=== PATIENT | male | born 1960 ===

== ENCOUNTER 2023-06-26 09:23 | Outpatient (CLI) | payer OTHER ==
[2023-06-26 10:24] LABS: HEMATOCRIT 42.2 % (39.0-48.0); HEMOGLOBIN 14.4 g/dL (13-16.00); MEAN CELL VOLUME 93.5 fL (80.0-100.00); MEAN CORPUSCULAR HEMOGLOBIN 31.9 pg (27.00-32.0); MEAN CORPUSCULAR HGB CONC 34.1 g/dl (32.0-36.0); PLATELET COUNT 256 K/uL (150-450); RED BLOOD COUNT 4.52 M/uL (4.00-6.00)
[2023-06-26 10:44] LABS: URINE APPEARANCE Clear; URINE BILIRRUBIN Negative (NEGATIVE); URINE BLOOD Negative; URINE COLOR Yellow; URINE LEUKOCYTE Negative; URINE NITRATE Negative; URINE PROTEIN Negative (NEGATIVE); URINE UROBILINOGEN 0.2 E.U./dl
[2023-06-26 10:53] LABS: ALBUMIN 4.1 gm/dL (3.4-5.0); BILIRUBIN TOTAL 0.6 mg/dL (0.3-1.2); CALCIUM 9.7 mg/dL (8.5-10.1); CREATININE SERUM 0.99 mg/dL (0.70-1.30); GFR 76.1; GLOBULINA 3.3 G/DL (2.4-3.5); POTASSIUM 4.31 mEq/L (3.5-5.1); TOTAL PROTEIN 7.4 gm/dL (6.4-8.2)
[2023-06-26 11:08] LABS: COL EPI 67 SECONDS (82-175)
[2023-06-26 11:16] LABS: INR 0.95; PARTIAL THROMBOPLASTIN TIME 29.1 SECONDS (22.0-34.0)
[2023-06-26 11:28] LABS: URINE EPITHELIAL CELLS 1.2 uL (0.0-38.8); URINE GLUCOSE >=1000 MG/DL (NEGATIVE); URINE RBC 1.1 uL (0.0-20.8); URINE WBC 0.7 uL (0.0-23.2)
[2023-06-28] MEDS ORDERED: NORVASC10 MG PO (11:37)
[2023-06-28] MEDS ORDERED: CRESTOR40 MG PO (11:37)
[2023-06-28] MEDS ORDERED: LYRICA20 MG/1 ML PO (11:38)
[2023-06-28] MEDS ORDERED: NEURONTIN300 MG PO (11:38)
[2023-06-28] MEDS ORDERED: METFORMIN HCL500 M3 (11:38)
== END 2023-06-26 09:24 | disposition home or self-care (01) ==
LOC: RAD 09:23
PROVIDERS: ATTEND Orthopaedic Surgery
DX: I10 Essential (primary) hypertension (principal); Z76.89 Persons encountering health services in other specified circumstances

== ENCOUNTER 2023-07-03 05:26 | Day surgery (SDC) | payer OTHER ==
[~2023-07-03 05:26] MED LIST: CRESTOR40 MG PO; LYRICA20 MG/1 ML PO; METFORMIN HCL500 M3; NEURONTIN300 MG PO; NORVASC10 MG PO
[2023-07-03] MEDS ORDERED: LIDOCAINE HCL/EPINEPHRINE 10MG/ML 1% 50ML IJ ONE ×2 (06:23→09:00)
[2023-07-03] MEDS ORDERED: BUPIVACAINE HCL/PF 0.5% 30ML ML ONE (06:23)
[2023-07-03] MEDS ORDERED: CEFAZOLIN SODIUM 1,000 MG VIAL ONE (06:24)
[2023-07-03] MEDS ORDERED: BUPIVACAINE HCL 30 ML VIAL IJ ONE (09:00)
[2023-07-03] MEDS ORDERED: CEFAZOLIN SODIUM 1,000 MG VIAL IV ONE (09:00)
== END 2023-07-03 11:45 | disposition home or self-care (01) ==
LOC: CIR.AMB 05:26
PROVIDERS: ATTEND Orthopaedic Surgery
DX: S83.242A Other tear of medial meniscus, current injury, left knee, initial encounter (principal); M65.862 Other synovitis and tenosynovitis, left lower leg; M17.12 Unilateral primary osteoarthritis, left knee; Z88.6 Allergy status to analgesic agent